=== PATIENT | female | born 1985 | race Caucasian/White ===

== ENCOUNTER 2023-01-08 05:09 | Emergency (ER) | payer SELFPAY ==
[~2023-01-08] VITALS: Ht 162.6 cm; Wt 70.3 kg
[2023-01-08] MEDS ORDERED: ACETAMINOPHEN 325 MG TAB PO ONE (05:45)
[2023-01-08] MEDS ORDERED: ULTRAM 50MG50 MG PO (07:59)
[2023-01-08] MEDS ORDERED: AMOX TR-K CLV1 EAC2 PO (08:48)
== END 2023-01-08 08:55 | disposition home or self-care (01) ==
LOC: ER 05:15
DX: S02.2XXA Fracture of nasal bones, initial encounter for closed fracture (principal); S00.83XA Contusion of other part of head, initial encounter; W18.31XA Fall on same level due to stepping on an object, initial encounter; Y93.01 Activity, walking, marching and hiking; Y92.89 Other specified places as the place of occurrence of the external cause; I10 Essential (primary) hypertension; J45.909 Unspecified asthma, uncomplicated; F17.210 Nicotine dependence, cigarettes, uncomplicated
CPT/HCPCS: 70450; 70486; 72125; 99283